=== PATIENT | male | born 1995 | race Caucasian/White ===

== ENCOUNTER 2022-11-17 22:34 | Emergency (ER) | payer OTHER, SELFPAY ==
[2022-11-17 22:35] VITALS: BP 146/86; PULSE 76; RESP 19; TEMP 36.6; O2SAT 100; BMI 24.1
--- NOTE | 2022-11-17 23:10 | RAD_ITS ---
EXAM: XR RIGHT HAND COMPLETE, 3 OR MORE VIEWS CLINICAL INDICATION: injury / ? FB TECHNIQUE: Frontal, lateral and oblique views of the right hand. COMPARISON: No relevant prior studies available. FINDINGS: BONES/JOINTS: Unremarkable. No acute fracture. No subluxation. Normal alignment. Preservation of the joint space. No sclerotic or destructive changes observed. SOFT TISSUES: Lateral view shows mild soft tissue swelling dorsal to the distal metacarpals. Oblique view shows a questionable tiny bubble of soft tissue emphysema projected between the second and third metacarpal heads. No opaque foreign body. RAD/Hand Min 3 Views IMPRESSION: Mild soft tissue swelling dorsal to the distal metacarpals. No acute fracture or opaque foreign body is identified. Electronically Signed: Melvin Syed MD at 23:44 EDT ,
--- NOTE | 2022-11-17 23:44 | EDS_ITS ---
HPI History of Present Illness Chief Complaint: Laceration Narrative Narrative: Patient is a 27-year-old male with no significant past medical history. He is right-hand dominant. He states he was using a color grinder roughly 1 hour prior to arrival. He states he was holding the color grinder with his right hand when something caught the cord and caused a color grinder to shift suddenly. 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 He states that he is concerned he may need sutures to close the wound and therefore comes in for evaluation. He is unsure of his tetanus status. He denies any numbness tingling or weakness. PFSH PFSH Medical History no medical history Home Medications cephalexin 500 mg capsule 500 mg PO TID 7 days #21 caps 11/17/22 [Rx Last Taken Unknown] Allergy/AdvReac Type Severity Reaction Status Date / Time No Known Allergies Allergy Verified 11/17/22 22:37 Social History Smoking Status: Never smoker ROS ROS ED Constitutional Constitutional ED: Denies chills or fever(s) ENT ENT ED: Denies sore throat Cardiovascular Cardiovascular: Denies chest pain Respiratory/Chest Respiratory/Chest: Denies cough or dyspnea Gastrointestinal Gastrointestinal: Denies abdominal pain, diarrhea, nausea or vomiting Genitourinary Genitourinary ED: Denies dysuria Musculoskeletal Musculoskeletal: Reports other Details: Positive right hand pain ; Denies myalgias Integumentary Reports other Details: Positive right hand laceration ; Denies rash Neurologic Neurologic: Denies headache(s), paresthesias or weakness Hematologic/Lymphatic Hematologic/Lymphatic: Denies easy bleeding or easy bruising EXAM Physical Exam Const Vital Signs: 11/17/22 22:35 Temperature 97.9 F Temperature Source Temporal Pulse Rate 76 Respiratory Rate 19 H Blood Pressure 146/86 H Blood Pressure Mean 106 Pulse Ox 100 Oxygen Delivery Method Room Air Positive well nourished and well developed General Appearance ED: well developed Eyes PERRL and EOMs intact bilaterally Neck supple Resp normal respiratory effort and clear to auscultation bilaterally Cardio regular rate and regular rhythm Extremity Extremity Narrative: Right upper extremity is neurovascular intact; AIN/PIN are intact and normal. Patient has a 2.5 cm linear subcutaneous layer deep laceration to the dorsal aspect of the right hand over top the distal aspect of the second metacarpal. There is minimal ooze of blood and no retained foreign body. No ligamentous or tendon injury noted. No bony injury or deformity present. Remainder of the exam is normal Neuro oriented x3 and CN's II-XII intact bilaterally Sensorium / Orientation: alert Psych mental status grossly normal Skin Skin Narrative: Laceration to the right hand as documented above MDM MDM MDM Narrative Medical decision making narrative: Patient presented to the ER with a laceration to his right hand. He is unsure of his tetanus status so that was updated. As the injury occurred by a color grinder there is concern for retained foreign body so an x-ray was ordered. X-ray revealed no acute fracture dislocation or retained foreign body. By exam he has no signs of ligamentous or tendon injury either and therefore there is no need to involve orthopedics. Patient had the wound closed as documented below and as it is a mild to moderately contaminated wound he will be placed on prophylactic antibiotic. Otherwise without signs of ligamentous or tendon injury and the fact the wound has been closed he is otherwise safe for discharge Patient had the right hand cleaned with chlorhexidine. It was anesthetized with 6 mL of 2% lidocaine with epinephrine in local fashion. The wound was copiously irrigated with normal saline. Then seven 3-0 Ethilon sutures were placed in simple interrupted fashion to bring the wound together good approximation. Patient tolerated the procedure well without complication History & Record Review Discussion w/independent historian: Patient and Family Radiography Diagnostic Testing: Clinical Impression(s) from Imaging Studies Hand X-Ray 11/17/22 23:10 IMPRESSION: Mild soft tissue swelling dorsal to the distal metacarpals. No acute fracture or opaque foreign body is identified. Electronically Signed: Melvin Syed MD at 23:44 EDT , X-ray of the right hand as interpreted by the emergency medicine physician reveals no acute fracture dislocation or foreign body Discharge Plan Triage Chief Complaint: Laceration ED Provider: Arnie Rocha Dx/Rx/DC Orders Clinical Impression: Laceration of right hand Instructions: ED Laceration, Hand: All Closures Prescriptions: New cephalexin 500 mg capsule 500 mg PO TID 7 Days Qty: 21 0RF Primary Care Provider: Dai Hunter Referrals: Dai Hunter MD [Primary Care Provider] - Activity Restrictions/Additional Instructions: Please return to the ER or see your family doctor in 7 to 10 days for suture removal Disposition Disposition: Home, Self Care Discharge Date/Time: 11/18/22 00:11
[2022-11-17] MEDS: Diphth,Pertuss(Acell),Tet Vac 0.5 ML Vial IM (23:51)
[2022-11-17] MEDS: Cephalexin 250 MG Capsule 500 MG PO (23:51)
[2022-11-17] MEDS: Lidocaine 2% /Epi 1:100 (20ml) 20 ML VIAL INFILT (23:58)
== END 2022-11-18 00:11 | disposition home or self-care (01) ==
PROVIDERS: Emergency Provider Emergency Medicine; PCP Family Medicine; Visit Provider Emergency Medicine
DX: S61.411A Laceration without foreign body of right hand, initial encounter (principal); W29.8XXA Contact with other powered hand tools and household machinery, initial encounter; Z23 Encounter for immunization
CPT/HCPCS: 12001; 73130; 90715; 99282